=== PATIENT | male | born 1935 | race African-American/Black ===

== ENCOUNTER 2021-10-18 03:58 | Day surgery (SDC) | payer OTHER, BC ==
[2021-10-14 12:09] VITALS: BMI 29.6
[2021-10-18] MEDS ORDERED: PROPOFOL 20 ML ONE (09:36)
[2021-10-18] MEDS ORDERED: ceFAZolin SODIUM 1 GM VIAL ONE (10:28)
[2021-10-18] MEDS ORDERED: ceFAZolin SODIUM 1 GM VIAL IVPB ONE (10:30)
[2021-10-18] MEDS ORDERED: ELECTROLYTE-148 SOLN 1,000 ML IV SCH (11:15)
[2021-10-18 11:18] VITALS: RESP 18; TEMP 98.5
[2021-10-18] MEDS ORDERED: ACETAMINOPHEN 325 MG TABLET (FP) PO PRN (11:31)
[2021-10-18] MEDS ORDERED: ONDANSETRON 4 MG/2 ML VIAL IVPUSH PRN (11:31)
[2021-10-18] MEDS ORDERED: oxyCODONE HCL 5 MG TABLET PO PRN (11:31)
[2021-10-18 11:49] VITALS: BP 141/56; PULSE 66
== END 2021-10-18 11:55 | disposition home or self-care (01) ==
LOC: JASU-SURG 03:58
PROVIDERS: ATTEND Urology
PROC: 0TF3XZZ Fragmentation in Right Kidney Pelvis, External Approach (ICD-10-PCS; principal; 2021-10-18 10:00)
DX: N20.0 Calculus of kidney (principal)
CPT/HCPCS: 36415; 84132

== ENCOUNTER 2022-02-21 04:21 | Day surgery (SDC) | payer OTHER, BC ==
[2022-02-17 10:51] VITALS: BMI 28.8
[~2022-02-21 04:21] MED LIST: ceFAZolin SODIUM 1 GM VIAL IVPB ONE
[2022-02-21] MEDS ORDERED: MIDAZOLAM HCL 2 MG/2 ML SINGLE DOSE VIAL ONE (09:03)
[2022-02-21] MEDS ORDERED: FENTANYL CITRATE/PF 50 MCG/ML VIAL ONE (09:03)
[2022-02-21] MEDS ORDERED: ceFAZolin SODIUM 1 GM VIAL IVPB ONE (09:52)
[2022-02-21] MEDS ORDERED: ELECTROLYTE-148 SOLN 1,000 ML IV SCH (10:45)
[2022-02-21 11:07] VITALS: BP 127/84; PULSE 72; RESP 24; TEMP 98.2
== END 2022-02-21 11:18 | disposition home or self-care (01) ==
LOC: JASU-SURG 04:21
PROVIDERS: ATTEND Urology
PROC: 0TF3XZZ Fragmentation in Right Kidney Pelvis, External Approach (ICD-10-PCS; principal; 2022-02-21 09:30)
DX: N20.0 Calculus of kidney (principal)
CPT/HCPCS: 36415; 84132